=== PATIENT | male | born 1955 ===

== ENCOUNTER 2021-05-19 22:05 | Emergency (ER) | payer MEDICAID ==
[~2021-05-19] VITALS: Ht 177.8 cm; Wt 90.9 kg
[2021-05-19 22:19] VITALS: BP 141/74
[2021-05-20] MEDS ORDERED: PERMETHRIN 5% 60 GM CREAM TP ONE (00:30)
== END 2021-05-20 02:03 | disposition home or self-care (01) ==
LOC: EMS 22:07
DX: B86 Scabies (principal); I10 Essential (primary) hypertension; Z59.00 Homelessness unspecified
CPT/HCPCS: 99282; 99283